=== PATIENT | female | born 1950 | race African-American/Black ===

== ENCOUNTER 2017-01-29 20:39 | Emergency (ER) | payer MEDICARE ==
[~2017-01-29] VITALS: Ht 157.5 cm; Wt 70.3 kg
[2017-01-29 20:52] VITALS: BP 168/83
[2017-01-29] MEDS ORDERED: traMADol 50 MG TABLET PO ONE (22:00)
[2017-01-29] MEDS: HYDROmorphone 2 MG/ML VIAL IM ONE ×2 (22:29→22:30)
[2017-01-29] MEDS ORDERED: CODEINE SULFATE 30 MG TABLET. PO ONE (22:45)
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
--- NOTE | 2017-01-30 08:29 | RAD ---
Indication injury. Pain. Internally and external rotated views of the right shoulder were obtained as well as a Y view. There are some mild degenerative changes at the AC joint. Slight degenerative change is seen overlying the greater tubercle. No fracture or acute bony abnormality is seen. IMPRESSION: No acute finding
== END 2017-01-29 23:24 | disposition home or self-care (01) ==
LOC: ER 20:48
DX: M25.511 Pain in right shoulder (principal); Z90.710 Acquired absence of both cervix and uterus; Z88.8 Allergy status to other drugs, medicaments and biological substances; V98.8XXA Other specified transport accidents, initial encounter; Y93.89 Activity, other specified; Y92.89 Other specified places as the place of occurrence of the external cause; Y99.8 Other external cause status
CPT/HCPCS: 73030; 99284; J1170